=== PATIENT | male | born 1975 | race Caucasian/White ===

== ENCOUNTER 2023-02-20 19:24 | Emergency (ER) | payer OTHER ==
[2023-02-20 19:30] VITALS: BP 128/73; PULSE 68; RESP 20; TEMP 98.2; BMI 26.2
[2023-02-20] MEDS ORDERED: KETOROLAC TROMETHAMINE 30 MG/1 ML VIAL IM ONE (19:58)
[2023-02-20] MEDS ORDERED: KETOROLAC TROMETHAMINE 15 MG/ML VIAL ONE (20:12)
== END 2023-02-20 20:50 | disposition home or self-care (01) ==
LOC: JERFT 19:24
PROC: 3E0233Z Introduction of Anti-inflammatory into Muscle, Percutaneous Approach (ICD-10-PCS; principal; 2023-02-20)
DX: M25.571 Pain in right ankle and joints of right foot (principal); M76.61 Achilles tendinitis, right leg
CPT/HCPCS: 73610-TC-RT-FY; 99284-25